=== PATIENT | male | born 1995 | race Caucasian/White ===

== ENCOUNTER 2019-09-20 02:53 | Emergency (ER) | payer OTHER ==
[~2019-09-20] VITALS: Ht 157.5 cm; Wt 83.9 kg
[2019-09-20 03:28] VITALS: BP 144/78
--- NOTE | 2019-09-20 03:33 | NUR ---
PT AMBULATED TO BED 1 WITH STEADY GAIT
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
[2019-09-20] MEDS ORDERED: MORPHINE SULFATE 4 MG/ML SYR IVP ONE (03:50)
[2019-09-20] MEDS ORDERED: ONDANSETRON 4 MG/2 ML VIAL IVP ONE (03:50)
--- NOTE | 2019-09-20 03:50 | NUR ---
ERMD AT BEDSIDE.
[2019-09-20 04:51] VITALS: BP 144/78
--- NOTE | 2019-09-20 04:51 | NUR ---
Patient discharged with v/s stable. Written and verbal after care instructions given and explained. Patient verbalized understanding. Ambulatory with steady gait. All questions addressed prior to discharge. Advised to follow up with PMD.
== END 2019-09-20 04:51 | disposition home or self-care (01) ==
LOC: MED 02:53
DX: S06.0X9A Concussion with loss of consciousness of unspecified duration, initial encounter (principal); Y08.89XA Assault by other specified means, initial encounter; Y93.9 Activity, unspecified; Y92.89 Other specified places as the place of occurrence of the external cause; Y99.8 Other external cause status
CPT/HCPCS: 70450; 99284